=== PATIENT | female | born 1965 ===

== ENCOUNTER 2016-11-21 13:13 | Emergency (ER) | payer OTHER ==
[2016-11-21] MEDS ORDERED: Ketorolac INJ* 60 MG/2 ML VIAL IM ONE (14:03)
--- NOTE | 2016-11-21 14:08 | UC ---
Abdominal Pain Female HPI - HPI Summary HPI Summary: right upper quad pain sternal pain n/v constipation at her baseline - History of Current Complaint Chief Complaint: UCAbdominalPain Stated Complaint: ABDOMINAL PAIN Time Seen by Provider: 11/21/16 13:59 Hx Obtained From: Patient ?: No Onset/Duration: Sudden Onset, Lasting Days - 3, Still Present Timing: Constant Severity Initially: Moderate Severity Currently: Moderate Pain Intensity: 8 Pain Scale Used: 0-10 Numeric Location: Discrete At: RUQ, Epigastric Radiates: Yes Radiates to: Back Character: Colicy, Cramping Aggravating Factor(s): Food Alleviating Factor(s): NPO Associated Signs and Symptoms: Positive: Constipation, Decreased Appetite, Nausea, Vomiting Allergies/Adverse Reactions: Allergies Allergy/AdvReac Type Severity Reaction Status Date / Time Codeine Allergy Itching Verified 11/21/16 13:57 Home Medications: Home Medications Lansoprazole [Prevacid] 30 mg PO SEE INSTRUCTIONS 11/21/16 [History Confirmed ] PMH/Surg Hx/FS Hx/Imm Hx Previously Healthy: No GI/ History Of: Reports: Gastroesophageal Reflux - Surgical History Surgical History: Yes Surgery Procedure, Year, and Place: laser laproscopy - Family History Known Family History: Positive: None Family History: no cardio vascular issues reported in family lineage, does have cancer in family lineage - Social History Occupation: Employed Full-time Lives: With Family Alcohol Use: Occasionally Substance Use Type: None Smoking Status (MU): Never Smoked Tobacco - Immunization History Most Recent Influenza Vaccination: 2015 Most Recent Tetanus Shot: UTD Most Recent Pneumonia Vaccination: N/A Review of Systems Constitutional: Negative Skin: Negative Eyes: Negative ENT: Negative Respiratory: Negative Cardiovascular: Negative Gastrointestinal: Abdominal Pain, Vomiting Genitourinary: Negative Motor: Negative Neurovascular: Negative Musculoskeletal: Negative Neurological: Negative Psychological: Negative All Other Systems Reviewed And Are Negative: Yes Physical Exam Triage Information Reviewed: Yes Appearance: Well-Appearing, Well-Nourished, Pain Distress Vital Signs: Initial Vital Signs Temp 99.8 F 11/21/16 13:53 Pulse 107 11/21/16 13:53 Resp 18 11/21/16 13:53 BP 128/70 11/21/16 13:53 Pulse Ox 100 11/21/16 13:53 Vital Signs Reviewed: Yes Eye Exam: Normal Eyes: Positive: Conjunctiva Clear ENT Exam: Normal ENT: Positive: Normal ENT inspection, Hearing grossly normal, Pharynx normal, TMs normal. Negative: Nasal congestion, Nasal drainage, Tonsillar swelling, Tonsillar exudate, Trismus, Muffled/hoarse voice Dental Exam: Normal Neck exam: Normal Neck: Positive: Supple, Nontender, No Lymphadenopathy Respiratory Exam: Normal Respiratory: Positive: Chest non-tender, Lungs clear, Normal breath sounds, No respiratory distress, No accessory muscle use Cardiovascular Exam: Normal Cardiovascular: Positive: No Murmur, Pulses Normal, Brisk Capillary Refill, Tachycardia Abdominal Exam: Normal Abdomen Description: Positive: Soft, Other: - ruq and midepigastric pain Bowel Sounds: Positive: Present Musculoskeletal Exam: Normal Musculoskeletal: Positive: Strength Intact, ROM Intact, No Edema Neurological Exam: Normal Neurological: Positive: Alert, Muscle Tone Normal Psychological Exam: Normal Skin Exam: Normal Diagnostics - Laboratory Diagnostic Studies Completed/Ordered: Gal stones 1 in Neck of gal bladder Re-Evaluation - Re-Evaluation First Eval Change: Improved Abd Pain Female Course/Dx - Course Course Of Treatment: Low fat diet, increase fluids, zofran prn, to ed for pain, fever, vomiting , follow with surgeon as planned on Saturday - Differential Dx/Diagnosis Differential Diagnosis: Gall Bladder Disease, MD, Pancreatitis, Urinary Tract Infection Provider Diagnoses: Gall Bladder disease Discharge - Discharge Plan Condition: Stable Disposition: HOME Prescriptions: Ondansetron ODT TAB* [Zofran 4 MG Odt TAB*] 4 mg PO Q6H PRN #10 tab.odt PRN Reason: nausea/vomiting Patient Education Materials: Gallstones (ED), Low Fat Diet (ED) Referrals: Vinayak Murray MD [Medical Doctor] - 11/23/16 11:00 am Non Staff,Doctor [Primary Care Provider] -
[2016-11-21 14:38] VITALS: BP 128/70
--- NOTE | 2016-11-21 14:47 | RAD ---
INDICATION: ] Quadrant pain COMPARISON: None TECHNIQUE: Longitudinal and transverse scans of the right upper quadrant were obtained. Doppler interrogation of the hepatic and portal venous system was performed. FINDINGS: Liver: The liver is normal in size and echogenicity. There are no focal masses. The liver measures 16.2 cm in cephalocaudal dimension. Vessels: There is normal hepatic and portal venous flow. Bile ducts: There is no evidence of intrahepatic or extrahepatic ductal dilatation. The common duct measures 0.5 cm. Gallbladder: There is biliary sludge and there is a gallstone in the neck of the gallbladder. The gall stone measures approximately 1.3 cm. There is no thickening gallbladder wall or pericholecystic fluid. Pancreas: The visualized pancreas appears normal Right kidney: The right kidney is normal in size and echogenicity. There are no masses or calculi. There is no evidence of hydronephrosis. The right kidney measures 11.0 x 4.6 x 4.1 cm. IVC and aorta: The aorta and superior vena cava appear normal. Fluid: There is no ascites. Other: None. IMPRESSION: LARGE GALLSTONE WHICH MAY BE IMPACTED IN THE NECK OF THE GALLBLADDER. NO GALLBLADDER WALL THICKENING OR PERICHOLECYSTIC FLUID. NO DUCTAL DILATATION.
== END 2016-11-21 16:02 | disposition home or self-care (01) ==
LOC: UCCORT 13:13
DX: K80.20 Calculus of gallbladder without cholecystitis without obstruction (principal); K59.00 Constipation, unspecified; K21.9 Gastro-esophageal reflux disease without esophagitis; Z88.5 Allergy status to narcotic agent
CPT/HCPCS: 76705; 93005; 96372; 99212; G0463; J1885

== ENCOUNTER 2017-12-27 09:01 | Emergency (ER) | payer OTHER ==
[2017-12-27 09:22] VITALS: BP 123/87
--- NOTE | 2017-12-27 10:19 | UC ---
Abdominal Pain Female HPI - HPI Summary HPI Summary: Patient complains of epigastric pain after eating for 6 weeks now she is only able to drink acting shakes and only parts of those without getting nauseated and uncomfortable. Patient also complains of watery diarrhea which is completely unusual for her. Patient denies fevers chills. Patient states she does not have any acid reflux as her Prevacid is managing that well without any change. Last year patient was seen here diagnosed with gallstones had surgery to remove a gangrenous gallbladder and is recovered without difficulty. Patient reports 20 pound weight loss in the past month, no fevers, chills or night sweats - History of Current Complaint Chief Complaint: UCGI Stated Complaint: ABD PAIN/SWELLING *6WEEKS Time Seen by Provider: 12/27/17 10:09 Hx Obtained From: Patient ?: No Onset/Duration: Sudden Onset Pain Intensity: 9 Pain Scale Used: 0-10 Numeric Location: Discrete At: LUQ, Epigastric Radiates: No Character: Other - early feelings of fullness Aggravating Factor(s): Food Alleviating Factor(s): Nothing Associated Signs and Symptoms: Positive: Decreased Appetite, Nausea, Vomiting, Diarrhea Allergies/Adverse Reactions: Allergies Allergy/AdvReac Type Severity Reaction Status Date / Time codeine Allergy Itching Verified 12/27/17 09:23 PMH/Surg Hx/FS Hx/Imm Hx Previously Healthy: No GI/ History: Gastroesophageal Reflux - Surgical History Surgical History: Yes Surgery Procedure, Year, and Place: LAPROSCOPIC TUBAL. LAP ARPAN - Family History Known Family History: Positive: None Family History: no cardio vascular issues reported in family lineage, does have cancer in family lineage - Social History Occupation: Employed Full-time Lives: With Family Alcohol Use: None Substance Use Type: None Smoking Status (MU): Never Smoked Tobacco - Immunization History Most Recent Influenza Vaccination: 2016 Most Recent Tetanus Shot: UTD Most Recent Pneumonia Vaccination: N/A Review of Systems Constitutional: Negative Skin: Negative Eyes: Negative ENT: Negative Respiratory: Negative Cardiovascular: Negative Gastrointestinal: Abdominal Pain, Vomiting, Diarrhea, Nausea Genitourinary: Negative Motor: Negative Neurovascular: Negative Musculoskeletal: Negative Neurological: Negative Psychological: Negative Is Patient Immunocompromised?: No All Other Systems Reviewed And Are Negative: Yes Physical Exam Triage Information Reviewed: Yes Appearance: Well-Nourished, Ill-Appearing - mild, Pain Distress - mild Vital Signs: Initial Vital Signs Temp 97.8 F 12/27/17 09:09 Pulse 84 12/27/17 09:09 Resp 15 12/27/17 09:09 BP 123/87 12/27/17 09:09 Pulse Ox 100 12/27/17 09:09 Vital Signs Reviewed: Yes Eye Exam: Normal Eyes: Positive: Conjunctiva Clear ENT Exam: Normal ENT: Positive: Normal ENT inspection, Hearing grossly normal. Negative: Trismus , Muffled voice, Hoarse voice Dental Exam: Normal Neck exam: Normal Neck: Positive: Supple, Nontender, No Lymphadenopathy Respiratory Exam: Normal Respiratory: Positive: Chest non-tender, Lungs clear, Normal breath sounds, No respiratory distress, No accessory muscle use Cardiovascular Exam: Normal Cardiovascular: Positive: RRR, No Murmur, Pulses Normal, Brisk Capillary Refill Abdominal Exam: Normal Abdomen Description: Positive: Other: - epigastric discomfort, luq pain---but not reproducable with palpation. Negative: No Organomegaly, Soft, CVA Tenderness (R), CVA Tenderness (L), Distended, McBurney's Point Tenderness, Peritoneal Signs, Pulsatile Mass, Splenomegaly Bowel Sounds: Positive: Present Musculoskeletal Exam: Normal Musculoskeletal: Positive: Strength Intact, ROM Intact, No Edema Neurological Exam: Normal Neurological: Positive: Alert, Muscle Tone Normal Psychological Exam: Normal Skin Exam: Normal Diagnostics - Radiology No standard instances Xray Interpretation: No Acute Changes Radiology Interpretation Completed By: ED Physician, Radiologist - Patient Name : PATEL CORRALES Medical Record#: [id number] Ordering Physician: Jolanta Dolan KINDERGARTEN TEACHER Acct.#: [id number] : 1965 Age: 52 Sex: F Location: [facility] Exam Date : 12/27/17 1019 ADM Status: REG ER Order Information: CHEST PA & LAT 2 VWS Accession Number: [id number] CPT : 68368 INDICATION: Hiatal hernia. COMPARISON: There are no prior studies available for comparison. TECHNIQUE: Dual-energy PA and lateral views of the chest were obtained. FINDINGS: The heart is within normal limits in size. Mediastinal and hilar contours appear within normal limits. No hiatal hernia is seen. The lungs are slightly hyperinflated and clear. No pleural effusion is seen. IMPRESSION: NO EVIDENCE FOR ACTIVE CARDIOPULMONARY DISEASE. <Electronically signed by Darnell Mccollum MD in OV> 12/27/17 1034 Dictated By: Darnell Mccollum MD Dictated Date/Time: 12/27/17 1034 Transcribed Date/Time: 12/27/17 1033 Copy to: CC:Zhane Curran MD; Jolanta Dolan KINDERGARTEN TEACHER; Non Staff,Doctor Imaging - [facility] Imaging [facility] Urgent [facility] [place] Imaging [facility] [address] 10 [facility] [address] [address] ph ) ph [phone]) ph ([phone]) 1 of 1 Abd Pain Female Course/Dx - Course Course Of Treatment: NPO patient will be discharged from urgent care to go directly to emergency department at [facility] - Differential Dx/Diagnosis Provider Diagnoses: abdomen pain, weight loss Discharge - Sign-Out/Discharge Documenting (check all that apply): Discharge/Admit/Transfer - Discharge Plan Condition: Fair Disposition: HOME Patient Education Materials: Acute Abdominal Pain (ED), Gas and Bloating (ED) Referrals: Non Staff,Doctor [Primary Care Provider] - Additional Instructions: Please go directly to the emergency department at [facility]. Nothing to eat or drink except small sips of water - Billing Disposition and Condition Condition: FAIR Disposition: Home
--- NOTE | 2017-12-27 10:37 | RAD ---
INDICATION: Hiatal hernia. COMPARISON: There are no prior studies available for comparison. TECHNIQUE: Dual-energy PA and lateral views of the chest were obtained. FINDINGS: The heart is within normal limits in size. Mediastinal and hilar contours appear within normal limits. No hiatal hernia is seen. The lungs are slightly hyperinflated and clear. No pleural effusion is seen. IMPRESSION: NO EVIDENCE FOR ACTIVE CARDIOPULMONARY DISEASE.
== END 2017-12-27 11:04 | disposition home or self-care (01) ==
LOC: UCCORT 09:01
DX: R10.13 Epigastric pain (principal); R10.12 Left upper quadrant pain; R63.4 Abnormal weight loss; Z88.5 Allergy status to narcotic agent; R19.7 Diarrhea, unspecified; K21.9 Gastro-esophageal reflux disease without esophagitis; Z79.899 Other long term (current) drug therapy
CPT/HCPCS: 71046; 81003; 87086; 99212; G0463

== ENCOUNTER 2018-10-23 07:50 | Emergency (ER) | payer OTHER ==
--- OUTSIDE RECORDS SUMMARY | 2018-10-23 08:00 | XMS REPORT | Continuity of Care Document ---
:1965 External Reference #:[id number] Author Name Cintia, Taisha Care Team Providers Name Role Phone Richard Starks MD Care Team Information Resident Physician In Radiology Unavailable Richard Starks MD Primary Care Physician Unavailable Payers Date Identification Numbers Payment Provider Subscriber Policy Number: [id number] Lifetime Benefits Solutsindhu Wood PayID: EBSRM [address] [address] [place] [address] Advance Directives Description No Information Available Problems Description No Information Family History Date Family Member(s) Observation Comments Onset: (11/2015) Father Bladder Cancer 12/11/15 Onset: (193) Father Adopted Onset: (01/1994) Mother Cancer Non-Hodgkin's Lymphoma Social History Type Date Description Comments Sex Female Marital Status Lives With Spouse Sleep Typically sleeps Less than 5 hours a night Sleep Reports difficulty falling asleep Sleep Reports continuity disturbances Smoke-Free Work is smoke-free Smoke-Free Home is smoke-free Occupation Currently Working Work Status Currently Working Blood Donor Patient is not a blood donor ETOH Use Moderate Tobacco Use Start: Unknown Patient has never smoked Recreational Drug Use Never Used Drugs Allergies, Adverse Reactions, Alerts Date Description Reaction Status Severity Comments 01/09/2018 Codeine Nausea and Vomiting, Urticaria, Active Dizziness, itching Medications Medication Date Status Form Strength Qnty SIG Indications Ordering Provider Carbamazepine Active Chewtabs 100mg 30unit 1 by mouth Shiraz 018 s every day Prakash Brownlee Lansoprazole 0 Active Capsules 15mg 1 by mouth Unknown 000 DR every day Dermotic Hx Oil 0.01% 1units apply 5 Shiraz, 018 - drops Kem, twice a M.D. 019 day to affected ear canal(s)fo r 7-14 days Dermotic Hx Oil 0.01% 1units apply 5 Shiraz, 018 - drops Kem, twice a M.D. 018 day to affected ear canal(s)fo r 7-14 days Prednisone Hx Tablets 20mg 5tabs 1 by mouth Edvin Weldon - every day Kem, M.DEdgardo 018 Medications Administered in Office Medication Date Status Form Strength Qnty SIG Indications Ordering Provider Dexamethasone Administered Injection Pilar Weldon M.D. Immunizations Description No Information Available Vital Signs Date Vital Result Comment 10/01/2018 8:43am Weight 158.00 lb Height 66 inches 5'6" BMI (Body Mass Index) 25.5 kg/m2 BP Systolic 150 mmHg BP Diastolic 89 mmHg Heart Rate 90 /min O2 % BldC Oximetry 99 % Body Temperature 98.2 F Pain Level 7 07/23/2018 2:09pm Weight 155.00 lb Height 66 inches 5'6" BMI (Body Mass Index) 25.0 kg/m2 BP Systolic 148 mmHg BP Diastolic 84 mmHg Heart Rate 76 /min O2 % BldC Oximetry 100 % Body Temperature 97.4 F Pain Level 2 06/10/2018 2:24pm Weight 158.00 lb Height 66 inches 5'6" BMI (Body Mass Index) 25.5 kg/m2 BP Systolic 147 mmHg BP Diastolic 89 mmHg Heart Rate 80 /min O2 % BldC Oximetry 99 % Body Temperature 97.8 F Pain Level 3 04/11/2018 10:10am Weight 167.00 lb Height 66 inches 5'6" BMI (Body Mass Index) 27.0 kg/m2 BP Systolic 132 mmHg BP Diastolic 89 mmHg Heart Rate 81 /min O2 % BldC Oximetry 98 % Body Temperature 97.5 F Pain Level 2 01/16/2018 2:55pm Weight 178.00 lb Height 66 inches 5'6" BMI (Body Mass Index) 28.7 kg/m2 BP Systolic 144 mmHg BP Diastolic 89 mmHg Heart Rate 89 /min O2 % BldC Oximetry 100 % Body Temperature 97.6 F Pain Level 2 Results Description No Information Available Procedures Date Code Description Status 07/23/2018 19780 Pure Tone Audiometry, Air Completed 07/23/2018 12853 Labyrinthotomy Completed 06/10/2018 53116 Tympanometry Completed 06/10/2018 15457 Audiometry, Comprehensive Completed 04/11/2018 44677 Tympanometry Completed 04/11/2018 15710 Audiometry, Comprehensive Completed 03/04/2018 97935 Tympanostomy, Gen. Anesth. Completed 03/04/2018 45144 Anesthesia, Tympanotomy Completed 01/16/2018 75967 Tympanometry Completed 01/16/2018 80295 Audiometry, Comprehensive Completed 12/20/2017 [id number] Mammogram Completed Encounters Type Date Location Provider Dx Diagnosis Office Visit 06/10/2018 Main Office Kem Weldon M.D. H69.92 Unspecified 3:00p Eustachian tube disorder, left ear K21.9 Gastro-esophageal reflux disease without esophagitis Office Visit 04/11/2018 10:15a Main Office Kem Weldon, H69.92 Unspecified M.D. 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
--- OUTSIDE RECORDS SUMMARY | 2018-10-23 08:00 | XMS REPORT | Continuity of Care Document ---
:1965 External Reference #:[id number] Author Name Marilee Sifuentes NP Address [address] [place] [address] Care Team Providers Name Role Phone Richard Starks MD Care Team Information Animal Therapist Unavailable Richard Starks MD Primary Care Physician Unavailable Payers Date Identification Numbers Payment Provider Subscriber Policy Number: [id number] Lifetime Benefits Alirio Wood PayID: EBSRM [address] [address] [place] [address] Advance Directives Description No Information Available Problems [...] Active Chewtabs 100mg 30unit 1 by mouth Edvin Weldon s every day Prakash Brownlee Lansoprazole 00/00/0 Active Capsules 15mg 1 by mouth Unknown 000 DR every day Dermotic Hx Oil 0.01% 1units apply 5 Shiraz, Edvin - drops Kem, twice a M.D. 019 day to affected ear canal(s)fo r 7-14 days Dermotic Hx Oil 0.01% 1units apply 5 Shiraz, 018 - drops Kem, twice a M.D. 018 day to affected ear canal(s)fo r 7-14 days Prednisone Hx Tablets 20mg 5tabs 1 by mouth Shiraz 018 - every day Kem, M.DEdgardo 018 Medications [...] Available Procedures Date Code Description Status 07/23/2018 97749 Pure Tone Audiometry, Air Completed 07/23/2018 49660 Labyrinthotomy Completed 06/10/2018 78543 Tympanometry Completed 06/10/2018 05209 Audiometry, Comprehensive Completed 04/11/2018 43506 Tympanometry Completed 04/11/2018 00565 Audiometry, Comprehensive Completed 03/04/2018 74589 Tympanostomy, Gen. Anesth. 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 [...]
[2018-10-23 08:07] VITALS: BP 125/84
[2018-10-23 08:24] LABS: Influenza A Molecular NEGATIVE (Negative); Influenza B Molecular NEGATIVE (Negative)
--- NOTE | 2018-10-23 08:45 | UC ---
FLU HPI - HPI Summary HPI Summary: 52-year-old female comes in with a chief complaint of 2 & half days of influenza -like illness symptoms. Patient has bodyaches and fatigue. She also has rhinorrhea and some chest congestion. No shortness of breath or wheezing. - History of Current Complaint Chief Complaint: UCGeneralIllness Stated Complaint: FLU SYMPTOMS Time Seen by Provider: 10/23/18 08:22 Pain Intensity: 4 - Allergy/Home Medications Allergies/Adverse Reactions: Allergies Allergy/AdvReac Type Severity Reaction Status Date / Time codeine Allergy Itching Verified 10/23/18 08:02 Home Medications: Home Medications D-Methorphan/PE/Acetaminophen [Vicks Dayquil Cold & Flu] 2 cap PO Q6H PRN [History Confirmed 10/23/18] GuaiFENesin DM* [Robitussin DM*] 10 ml PO Q6H PRN 10/23/18 [History Confirmed ] PMH/Surg Hx/FS Hx/Imm Hx Previously Healthy: Yes GI/ History: Gastroesophageal Reflux - Surgical History Surgical History: Yes Surgery Procedure, Year, and Place: LAPROSCOPIC TUBAL. LAP ARPAN - Family History Known Family History: Positive: None Family History: no cardio vascular issues reported in family lineage, does have cancer in family lineage - Social History Alcohol Use: Occasionally Substance Use Type: None Smoking Status (MU): Never Smoked Tobacco - Immunization History Most Recent Influenza Vaccination: 2015 Most Recent Tetanus Shot: UTD Most Recent Pneumonia Vaccination: N/A Review of Systems All Other Systems Reviewed And Are Negative: Yes Constitutional: Positive: Fatigue Skin: Positive: Negative Eyes: Positive: Negative ENT: Positive: Sore Throat - mild, Nasal Discharge, Sinus Congestion Respiratory: Positive: Cough, Other - see hpi Cardiovascular: Positive: Negative Gastrointestinal: Positive: Negative Motor: Positive: Negative Neurovascular: Positive: Negative Musculoskeletal: Positive: Myalgia Neurological: Positive: Negative Psychological: Positive: Negative Is Patient Immunocompromised?: No Physical Exam Triage Information Reviewed: Yes Appearance: No Pain Distress, Well-Nourished, Ill-Appearing - mild Vital Signs: Initial Vital Signs Temp 98.8 F 10/23/18 08:01 Pulse 90 10/23/18 08:01 Resp 18 10/23/18 08:01 BP 125/84 10/23/18 08:01 Pulse Ox 99 10/23/18 08:01 Vital Signs Reviewed: Yes Eye Exam: Normal Eyes: Positive: Conjunctiva Clear ENT: Positive: Pharyngeal erythema, Nasal congestion, Nasal drainage, TMs normal Neck exam: Normal Neck: Positive: Supple Respiratory: Positive: Lungs clear, Normal breath sounds, No respiratory distress Cardiovascular: Positive: RRR Musculoskeletal Exam: Normal Musculoskeletal: Positive: Strength Intact, ROM Intact Neurological Exam: Normal Neurological: Positive: Alert, Muscle Tone Normal Psychological Exam: Normal Psychological: Positive: Age Appropriate Behavior Skin Exam: Normal Flu Course/Dx - Course Course Of Treatment: DISCUSSED VIRAL VERSES BACTERIAL INFECTION AND THE ROLE OF ANTIBIOTICS. THE PATIENT WISHES TO HAVE A PRESCRIPTION FOR AN ANTIBIOTICS AT THIS TIME. - Differential Dx/Diagnosis Provider Diagnosis: Upper respiratory infection Discharge - Sign-Out/Discharge Documenting (check all that apply): Patient Departure All imaging exams completed and their final reports reviewed: No Studies - Discharge Plan Condition: Stable Disposition: HOME Prescriptions: Amoxicillin PO (*) [Amoxicillin 875 MG (*)] 875 mg PO BID #20 tab Patient Education Materials: Upper Respiratory Infection (ED) Referrals: [facility] [place] [Outside] Additional Instructions: FOLLOW UP WITH YOUR DOCTOR IF NOT COMPLETELY IMPROVED. GET REEVALUATED SOONER FOR ANY WORSENING OF YOUR CONDITION OR ANY QUESTIONS OR CONCERNS. - Billing Disposition and Condition Condition: STABLE Disposition: Home
== END 2018-10-23 08:49 | disposition home or self-care (01) ==
LOC: UCCORT 07:50
DX: J06.9 Acute upper respiratory infection, unspecified (principal); M79.10 Myalgia, unspecified site; R09.89 Other specified symptoms and signs involving the circulatory and respiratory systems; R53.83 Other fatigue; Z88.5 Allergy status to narcotic agent
CPT/HCPCS: 99212; G0463